=== PATIENT | female | born 1995 | race Caucasian/White ===

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

== ENCOUNTER → 2017-08-31 | Outpatient (REF) | payer OTHER | LOC: M LAB REF 12:07 | DX: J06.9 Acute upper respiratory infection, unspecified (principal) ==

== ENCOUNTER → 2019-12-15 | Outpatient (CLI) | payer OTHER ==
--- NOTE | 2019-12-15 14:49 | REP ---
Clinical: Recent injury. Technique: AP, lateral, bilateral oblique views of the right first digit. Findings: Osseous structures, joint spaces, and surrounding soft tissues appear normal by radiographic evaluation. No acute fracture or dislocation. No subcutaneous emphysema or foreign body. Impression: No acute fracture or dislocation. Electronically Signed by Zana Wetzel MD 12/15/2019 02:40 P
== END ==
LOC: M ADAMS 11:45
PROVIDERS: ATTEND Physician Assistant
DX: S63.601A Unspecified sprain of right thumb, initial encounter (principal); X58.XXXA Exposure to other specified factors, initial encounter; Y92.9 Unspecified place or not applicable

== ENCOUNTER → 2020-09-16 | Outpatient (REF) | payer OTHER ==
[2020-09-16 11:55] LABS: HEMATOCRIT 38.5 % (36.0-47.0); MEAN CORPUSCULAR HEMOGLOBIN 29.7 pg (27.0-33.0); MEAN CORPUSCULAR HGB CONC 33.8 g/dl (32.0-36.5); MEAN CORPUSCULAR VOLUME 87.9 fl (80.0-96.0); PLATELET COUNT, AUTOMATED 280 10^3/uL (150-450); RED BLOOD COUNT 4.38 10^6/uL (4.00-5.40); WHITE BLOOD COUNT 10.3 10^3/uL (4.0-10.0)
[2020-09-16 13:10] LABS: HCG, SERUM QUANTITATIVE 84979 MIU/ML; HEPATITIS C VIRUS ABY INDEX < 0.0 INDEX (<0.8); HIV 1&2 SCREEN CENTAUR NEGATIVE (NEGATIVE)
== END ==
LOC: M LAB REF 11:20
PROVIDERS: ATTEND Obstetrics & Gynecology
DX: O36.80X0 Pregnancy with inconclusive fetal viability, not applicable or unspecified (principal)

== ENCOUNTER → 2020-10-01 | Outpatient (CLI) | payer OTHER ==
--- NOTE | 2020-10-01 16:25 | REP ---
INDICATION: DATING AND VIABILITY. COMPARISON: None. TECHNIQUE: Real-time sonographic evaluation of gravid uterus performed. FINDINGS: There is a single living intrauterine gestation. The estimated gestational age is 10 weeks 0 days based on a crown-rump length of 31 mm, EDC 04/29/2021. heart rate 169 beats per minute. Cervix is closed and measures 4.1 cm in length. There is no subchorionic hemorrhage. Cystic structure 1 cm in diameter in the left ovary probably represents a corpus luteum. Right ovary appears unremarkable. IMPRESSION: Viable intrauterine gestation estimated gestational age 10 weeks 0 days, EDC 04/29/2021. <Electronically signed by Tacho Pfeiffer > 10/01/20 [id number]
== END ==
LOC: M WHC 14:58
PROVIDERS: ATTEND Obstetrics & Gynecology
DX: O36.80X0 Pregnancy with inconclusive fetal viability, not applicable or unspecified (principal); Z3A.10 10 weeks gestation of pregnancy

== ENCOUNTER → 2021-02-07 | Outpatient (CLI) | payer OTHER ==
[2021-02-07 10:31] LABS: HEMATOCRIT 33.6 % (36.0-47.0); HEMOGLOBIN 10.9 g/dl (12.0-15.5); MEAN CORPUSCULAR HEMOGLOBIN 28.3 pg (27.0-33.0); MEAN CORPUSCULAR HGB CONC 32.4 g/dl (32.0-36.5); MEAN CORPUSCULAR VOLUME 87.3 fl (80.0-96.0); PLATELET COUNT, AUTOMATED 223 10^3/uL (150-450); RED BLOOD COUNT 3.85 10^6/uL (4.00-5.40); WHITE BLOOD COUNT 12.3 10^3/uL (4.0-10.0)
== END ==
LOC: M LAB 08:32
PROVIDERS: ATTEND Obstetrics & Gynecology
DX: Z34.02 Encounter for supervision of normal first pregnancy, second trimester (principal)
CPT/HCPCS: 36415; 82950; 85027; 86850; 86901; J2790

== ENCOUNTER → 2021-02-17 | Outpatient (CLI) | payer OTHER | LOC: M LAB 07:52 | PROVIDERS: ATTEND Obstetrics & Gynecology | DX: R73.02 Impaired glucose tolerance (oral) (principal) ==

== ENCOUNTER → 2021-02-24 | Outpatient (REF) | LOC: M LABSMTC 09:58 | PROVIDERS: ATTEND Pediatrics | DX: Z20.822 Contact with and (suspected) exposure to COVID-19 (principal) ==

== ENCOUNTER → 2021-04-05 | Outpatient (REF) | payer OTHER | LOC: M LAB REF 11:33 | PROVIDERS: ATTEND Obstetrics & Gynecology | DX: Z34.03 Encounter for supervision of normal first pregnancy, third trimester (principal); Z36.89 Encounter for other specified antenatal screening ==

== ENCOUNTER → 2021-11-22 | Outpatient (CLI) | payer OTHER | LOC: M PLAIMG 08:35 | PROVIDERS: ATTEND Nurse Practitioner Family | DX: M25.561 Pain in right knee (principal) ==

== ENCOUNTER → 2022-09-06 | Outpatient (REF) | payer OTHER ==
[2022-09-06 14:05] LABS: ALKALINE PHOSPHATASE 90 U/L (46-116); ALT/SGPT 12 U/L (7.0-40); AST/SGOT 17 U/L (<34); BILIRUBIN,TOTAL 0.5 MG/DL (0.3-1.2); BLOOD UREA NITROGEN 11 MG/DL (9-23); CARBON DIOXIDE LEVEL 26 MMOL/L (20-31); CHLORIDE LEVEL 105 MMOL/L (98-107); CHOLESTEROL LEVEL 145 MG/DL (<200); CHOLESTEROL RISK RATIO 3.71 (<5); CREATININE FOR GFR 0.75 MG/DL (0.55-1.30); GLOMERULAR FILTRATION RATE > 60.0 (>60); GLUCOSE, FASTING 78 MG/DL (60-100); LDL CHOLESTEROL 87.8 MG/DL (<100); POTASSIUM SERUM 4.2 MMOL/L (3.5-5.1); SODIUM LEVEL 139 MMOL/L (136-145); THYROID STIMULATING HORMONE 0.809 uIU/ML (0.55-4.78); TOTAL PROTEIN 7.2 G/DL (5.7-8.2); TRIGLYCERIDES LEVEL 91 MG/DL (<150)
[2022-09-06 14:06] LABS: TOTAL 25(OH) VITAMIN D 18.6 NG/ML (20.0-100.0)
[2022-09-06 14:32] LABS: HIV 1&2 SCREEN CENTAUR NEGATIVE (NEGATIVE)
[2022-09-06 14:35] LABS: HEMOGLOBIN A1c 5.2 % (4.0-6.0)
[2022-09-06 14:39] LABS: HEPATITIS C VIRUS ABY INDEX 0.1 INDEX (<0.8)
== END ==
LOC: M LAB REF 12:21
PROVIDERS: ATTEND Nurse Practitioner Family
DX: Z11.9 Encounter for screening for infectious and parasitic diseases, unspecified (principal); E66.9 Obesity, unspecified

== ENCOUNTER → 2023-07-23 | Outpatient (REF) | payer OTHER ==
[2023-07-23 18:18] LABS: HEMATOCRIT 40.3 % (36.0-47.0); HEMOGLOBIN 13.3 g/dl (12.0-15.5); MEAN CORPUSCULAR HEMOGLOBIN 28.1 pg (27.0-33.0); PLATELET COUNT, AUTOMATED 333 10^3/uL (150-450); RED BLOOD COUNT 4.74 10^6/uL (4.00-5.40); WHITE BLOOD COUNT 9.2 10^3/uL (4.0-10.0)
[2023-07-23 18:34] LABS: ALBUMIN 3.9 G/DL (3.2-5.2); ALKALINE PHOSPHATASE 105 U/L (46-116); ALT/SGPT 10 U/L (7.0-40); AST/SGOT 14 U/L (<34); BILIRUBIN,TOTAL 0.4 MG/DL (0.3-1.2); BLOOD UREA NITROGEN 13 MG/DL (9-23); CALCIUM LEVEL 9.5 MG/DL (8.5-10.1); CARBON DIOXIDE LEVEL 27 MMOL/L (20-31); CHLORIDE LEVEL 105 MMOL/L (98-107); CHOLESTEROL LEVEL 172 MG/DL (<200); CHOLESTEROL RISK RATIO 3.66 (<5); CREATININE FOR GFR 0.81 MG/DL (0.55-1.30); GLOMERULAR FILTRATION RATE > 60.0 (>60); GLUCOSE, FASTING 79 MG/DL (60-100); HDL CHOLESTEROL 46.9 MG/DL (>40); LDL CHOLESTEROL 99.3 MG/DL (<100); NON-HDL-C 125.1 MG/DL; POTASSIUM SERUM 4.7 MMOL/L (3.5-5.1); SODIUM LEVEL 134 MMOL/L (136-145); TOTAL PROTEIN 7.7 G/DL (5.7-8.2); TRIGLYCERIDES LEVEL 129 MG/DL (<150)
[2023-07-23 18:36] LABS: THYROID STIMULATING HORMONE 1.126 uIU/ML (0.55-4.78); TOTAL 25(OH) VITAMIN D 25.5 NG/ML (20.0-100.0)
== END ==
LOC: M LAB REF 17:22
PROVIDERS: ATTEND Physician Assistant
DX: Z00.00 Encounter for general adult medical examination without abnormal findings (principal); E55.9 Vitamin D deficiency, unspecified; Z68.33 Body mass index [BMI] 33.0-33.9, adult

== ENCOUNTER → 2023-09-07 | Outpatient (REF) | payer OTHER ==
[2023-09-07 18:58] LABS: BASO # 0.1 10^3/uL (0.0-0.2); BASO % 0.8 % (0.0-1.0); EOS # 0.1 10^3/uL (0.0-0.5); EOS % 1.5 % (0.0-3.0); HEMATOCRIT 41.5 % (36.0-47.0); HEMOGLOBIN 13.6 g/dl (12.0-15.5); LYMPH # 2.6 10^3/uL (1.5-5.0); LYMPH % 30.8 % (24.0-44.0); MEAN CORPUSCULAR HEMOGLOBIN 27.8 pg (27.0-33.0); MEAN CORPUSCULAR HGB CONC 32.8 g/dl (32.0-36.5); MEAN CORPUSCULAR VOLUME 84.9 fl (80.0-96.0); MONO # 0.5 10^3/uL (0.0-0.8); MONO % 6.2 % (2.0-8.0); NEUTROPHILS # 5.1 10^3/uL (1.5-8.5); NEUTROPHILS % 60.5 % (36.0-66.0); PLATELET COUNT, AUTOMATED 315 10^3/uL (150-450); RED BLOOD COUNT 4.89 10^6/uL (4.00-5.40); WHITE BLOOD COUNT 8.4 10^3/uL (4.0-10.0)
[2023-09-07 19:05] LABS: ERYTHROCYTE SEDIMENTATION RATE 25 mm/hr (0-20)
[2023-09-12 09:32] LABS: HSV-1 DNA Negative (Negative); HSV-2 DNA Negative (Negative)
== END ==
LOC: M LAB REF 17:32
PROVIDERS: ATTEND Physician Assistant
DX: R21 Rash and other nonspecific skin eruption (principal)

== ENCOUNTER → 2023-12-05 | Outpatient (REF) | payer OTHER | LOC: M LAB REF 11:40 | PROVIDERS: ATTEND Physician Assistant | DX: R21 Rash and other nonspecific skin eruption (principal) ==

== ENCOUNTER → 2024-07-24 | Outpatient (REF) | payer OTHER ==
[2024-07-24 14:39] LABS: HEMATOCRIT 40.1 % (36.0-47.0); HEMOGLOBIN 13.5 g/dl (12.0-15.5); MEAN CORPUSCULAR HEMOGLOBIN 29.5 pg (27.0-33.0); MEAN CORPUSCULAR HGB CONC 33.7 g/dl (32.0-36.5); MEAN CORPUSCULAR VOLUME 87.6 fl (80.0-96.0); PLATELET COUNT, AUTOMATED 322 10^3/uL (150-450); RED BLOOD COUNT 4.58 10^6/uL (4.00-5.40); WHITE BLOOD COUNT 7.5 10^3/uL (4.0-10.0)
[2024-07-24 14:48] LABS: ERYTHROCYTE SEDIMENTATION RATE 34 mm/hr (0-20)
[2024-07-24 14:50] LABS: LIPASE 43 U/L (12-53)
[2024-07-24 14:52] LABS: ALBUMIN 3.8 G/DL (3.2-5.2); ALKALINE PHOSPHATASE 89 U/L (35-104); ALT/SGPT 28 U/L (7.0-40); AST/SGOT 27 U/L (<34); BILIRUBIN,TOTAL 0.3 MG/DL (0.3-1.2); BLOOD UREA NITROGEN 7 MG/DL (9-23); CALCIUM LEVEL 9.6 MG/DL (8.5-10.1); CARBON DIOXIDE LEVEL 27 MMOL/L (20-31); CHLORIDE LEVEL 106 MMOL/L (98-107); GLOMERULAR FILTRATION RATE > 60.0 (>60); GLUCOSE, FASTING 77 MG/DL (60-100); POTASSIUM SERUM 5.4 MMOL/L (3.5-5.1); SODIUM LEVEL 140 MMOL/L (136-145); TOTAL PROTEIN 7.3 G/DL (5.7-8.2)
== END ==
LOC: M LAB REF 13:10
PROVIDERS: ATTEND Physician Assistant
DX: R10.13 Epigastric pain (principal)

== ENCOUNTER → 2024-07-24 | Outpatient (REF) | payer OTHER | LOC: M LAB REF 09:07 | PROVIDERS: ATTEND Physician Assistant | DX: R10.13 Epigastric pain (principal) ==

== ENCOUNTER → 2024-09-17 | Outpatient (CLI) | payer OTHER | LOC: M RAD 09:11 | PROVIDERS: ATTEND Physician Assistant | DX: K59.00 Constipation, unspecified (principal) ==

== ENCOUNTER → 2024-09-23 | Outpatient (CLI) | payer OTHER | LOC: M RAD 10:36 | PROVIDERS: ATTEND Physician Assistant | DX: R10.13 Epigastric pain (principal); K82.4 Cholesterolosis of gallbladder ==